=== PATIENT | male | born 1940 | race Caucasian/White ===

== ENCOUNTER 2018-03-18 09:12 | Inpatient (IN) | payer OTHER ==
[~2018-03-18] VITALS: Ht 172.7 cm; Wt 83.3 kg
[~2018-03-18 09:12] MED LIST: FISH OIL 1,0001 EAC7 PO; IRON325 MG PO; LOPRESSOR25 MG PO; MIRALAX17 GM PO
[2018-03-18 09:40] LABS: BASOPHIL (%) 0.2 % (0-1); EOSINOPHIL (%) 0.4 % (0-5); HEMATOCRIT 41.9 % (38.0-50.0); HEMOGLOBIN 13.7 G/DL (12.5-16.6); IMMATURE GRANULOCYTE (%) 0.4 % (0.0-0.7); LYMPHOCYTE (%) 8.7 % (15-42); LYMPHOCYTE COUNT 0.9 K/uL (1.0-2.8); MCH 29.4 PG (29.0-34.0); MCHC 32.7 G/DL (30.0-36.0); MCV 89.9 FL (86-99); MONOCYTE (%) 7.7 % (3-12); MONOCYTE COUNT 0.8 K/uL (0-0.8); NEUTROPHIL (%) 82.6 % (45-76); PLATELET COUNT 177 K/uL (156-360); RBC DIS.WIDTH-CV 13.8 % (11.8-14.6); RBC DIS.WIDTH-SD 45.6 % (39-53); RED BLOOD COUNT 4.66 M/uL (4.00-5.50); WHITE BLOOD COUNT 10.9 K/uL (4.1-10.2)
[2018-03-18 09:49] LABS: ALBUMIN 4.3 g/dL (3.2-4.8); CHLORIDE 102 mEq/L (99-109); POTASSIUM 5.2 mEq/L (3.7-5.4); SODIUM 141 mEq/L (136-147)
[2018-03-18 09:51] LABS: GLUCOSE 112 mg/dL (70-99); TOTAL PROTEIN 8.5 g/dL (6.4-8.3)
[2018-03-18 09:53] LABS: TOTAL BILIRUBIN 0.6 mg/dL (0.0-1.0)
[2018-03-18 09:55] LABS: ALKALINE PHOSPHATASE 104 IU/L (3-129); CREATININE 1.9 mg/dL (0.6-1.3); GFR ESTIMATE (CALCULATED) 37 mL/min/ (58.99-99999)
[2018-03-18 09:56] LABS: UREA NITROGEN (BUN) 24 mg/dL (9-23)
[2018-03-18 09:57] LABS: AST (GOT) 27 IU/L (2-34)
[2018-03-18 09:58] LABS: ALT (GPT) 14 IU/L (3-49)
[2018-03-18 10:01] LABS: TROP-I INTERPRETATION POSITIVE
[2018-03-18 10:03] LABS: TROPONIN-I 0.66 ng/mL (0.0-0.30)
[2018-03-18] MEDS ORDERED: LOPRESSOR50 MG PO (11:14)
[2018-03-18] MEDS ORDERED: NORVASC10 MG PO (11:14)
[2018-03-18 13:37] VITALS: BP 145/74
[2018-03-18 15:13] VITALS: BP 138/74
[2018-03-18 18:34] LABS: TROP-I INTERPRETATION POSITIVE; TROPONIN-I 1.14 ng/mL (0.0-0.30)
[2018-03-18 19:56] VITALS: BP 132/64
[2018-03-19] VITALS (7 sets, daily range): BP systolic 126–159; BP diastolic 68–82
[2018-03-19 01:21] LABS: TROP-I INTERPRETATION POSITIVE
[2018-03-19 02:05] LABS: TROPONIN-I 1.17 ng/mL (0.0-0.30)
[2018-03-19 07:41] LABS: ALBUMIN 3.8 G/DL (3.2-4.8); ALKALINE PHOSPHATASE 80 IU/L (3-129); ALT (GPT) 8 IU/L (3-49); AST (GOT) 17 IU/L (2-34); CHLORIDE 102 MEQ/L (99-109); CREATININE 1.7 MG/DL (0.6-1.3); GFR ESTIMATE (CALCULATED) 42 mL/min/ (58.99-99999); GLUCOSE 129 mg/dL (70-99); MAGNESIUM 2.2 mg/dl (1.3-2.7); POTASSIUM 5.4 MEQ/L (3.7-5.4); SODIUM 139 MEQ/L (136-147); TOTAL BILIRUBIN 0.4 MG/DL (0.0-1.0); TOTAL PROTEIN 6.6 G/DL (6.4-8.3); UREA NITROGEN (BUN) 30 mg/dL (9-23)
[2018-03-19 07:42] LABS: HEMATOCRIT 36.6 % (38.0-50.0); HEMOGLOBIN 11.5 G/DL (12.5-16.6); MCH 28.3 PG (29.0-34.0); MCHC 31.4 G/DL (30.0-36.0); MCV 90.1 FL (86-99); PLATELET COUNT 145 K/uL (156-360); RBC DIS.WIDTH-CV 13.6 % (11.8-14.6); RBC DIS.WIDTH-SD 45.2 % (39-53); RED BLOOD COUNT 4.06 M/uL (4.00-5.50); WHITE BLOOD COUNT 9.6 K/uL (4.1-10.2)
[2018-03-20 03:51] VITALS: BP 157/78
[2018-03-20 07:27] VITALS: BP 153/78
[2018-03-20 11:19] VITALS: BP 137/65
[2018-03-20 15:42] VITALS: BP 130/64
[2018-03-20 19:24] VITALS: BP 131/61
[2018-03-20 22:30] VITALS: BP 119/62
[2018-03-21] VITALS (9 sets, daily range): BP systolic 122–150; BP diastolic 67–91
[2018-03-21 10:25] LABS: PCO2 62 mm Hg (35-45); PO2 172 mm Hg (80-100); pH 7.27 (7.35-7.45)
[2018-03-21 10:26] LABS: BASE EXCESS 0.4 mEq/L (-3 to +3); BICARBONATE 28.5 mEq/L (22-26); CARBOXY HGB 0 % (0-5); COMMENTS - BLOOD GASES A+C+; METHEMOGLOBIN 0.5 % (0-1.5); O2 FLOW 15 L/MIN; SITE RR
[2018-03-21 10:27] LABS: DEVICE NRBR; FI02 100 %; TOTAL RESP RATE 26 resp/min
[2018-03-21 10:45] LABS: HEMATOCRIT 35.8 % (38.0-50.0); HEMOGLOBIN 11.6 G/DL (12.5-16.6); MCHC 32.4 G/DL (30.0-36.0); MCV 89.5 FL (86-99); RBC DIS.WIDTH-CV 14.3 % (11.8-14.6); RBC DIS.WIDTH-SD 46.9 % (39-53); WHITE BLOOD COUNT 17.7 K/uL (4.1-10.2)
[2018-03-21 10:46] LABS: PLATELET COUNT 202 K/uL (156-360)
[2018-03-21 11:08] LABS: CHLORIDE 100 MEQ/L (99-109); CREATININE 1.7 MG/DL (0.6-1.3); GFR ESTIMATE (CALCULATED) 42 mL/min/ (58.99-99999); GLUCOSE 135 mg/dL (70-99); POTASSIUM 4.6 MEQ/L (3.7-5.4); SODIUM 137 MEQ/L (136-147); UREA NITROGEN (BUN) 33 mg/dL (9-23)
[2018-03-21 11:15] LABS: TROP-I INTERPRETATION POSITIVE; TROPONIN-I 1.03 ng/mL (0.0-0.30)
[2018-03-21 12:00] LABS: SITE LR
[2018-03-21 12:01] LABS: COMMENTS - BLOOD GASES A++C; CONTINUOUS POS AIRWAY PRESSURE 5 cm H2O; DEVICE 980; FI02 50 %; MODE NIPPV/SPONT; PRES. SUPPORT 10 CM/H2O; TOTAL RESP RATE 16 resp/min; pH 7.35 (7.35-7.45)
[2018-03-21 12:02] LABS: BICARBONATE 27.1 mEq/L (22-26); CARBOXY HGB 0.3 % (0-5); METHEMOGLOBIN 0.6 % (0-1.5); PCO2 49 mm Hg (35-45); PO2 100 mm Hg (80-100)
[2018-03-21 12:14] LABS: INTER. NORMALIZED RATIO 1.1
[2018-03-21 12:17] LABS: PTT 27.9 SEC (25-37)
[2018-03-21 13:38] LABS: ALBUMIN 3.9 G/DL (3.2-4.8); ALKALINE PHOSPHATASE 65 IU/L (3-129); DIRECT BILIRUBIN 0.1 mg/dL (0.0-0.3); TOTAL BILIRUBIN 0.4 MG/DL (0.0-1.0); TOTAL PROTEIN 6.8 G/DL (6.4-8.3)
[2018-03-21 13:39] LABS: ALT (GPT) 27 IU/L (3-49); AST (GOT) 34 IU/L (2-34)
[2018-03-21 14:13] LABS: HEMOGLOBIN A1c (GLYCOHEMOGLOB) 5.6 % (Below 5.7)
[2018-03-21 14:43] LABS: THYROTROPIN (TSH) 0.65 MIU/L (0.4-5.5)
[2018-03-21 14:46] LABS: HIGH-SENS C-REACTIVE PROTEIN 2.73 MG/DL (0.02-0.20)
[2018-03-21 14:59] LABS: APPEARANCE CLEAR ((CLEAR)); BILIRUBIN NEGATIVE; BLOOD SMALL; COLOR COLORLESS ((YELLOW)); GLUCOSE (STRIP) NEGATIVE; KETONES NEGATIVE; LEUKOCYTES NEGATIVE; NITRITE NEGATIVE; PROTEIN (STRIP) NEGATIVE; SPECIFIC GRAVITY 1.005 (1.000-1.030); UROBILINOGEN 0.2 MG/DL (0.2-1.0)
[2018-03-21 15:05] LABS: BACTERIA NONE SEEN /HPF; EPITHELIAL CELLS NONE SEEN /HPF; MUCUS TRACE /LPF; RED BLOOD CELLS 0-5 /HPF (0-5); UCUL ADDED? YES
[2018-03-21 15:32] LABS: UR CREATININE CONCENTRATION 18.3 MG/DL
[2018-03-21 16:25] LABS: EOSINOPHILS,URINE NONE SEEN
[2018-03-22] VITALS (30 sets, daily range): BP systolic 97–143; BP diastolic 60–83
[2018-03-22 06:09] LABS: BASOPHIL (%) 0 % (0-1); EOSINOPHIL (%) 0 % (0-5); HEMATOCRIT 30.5 % (38.0-50.0); HEMOGLOBIN 9.9 G/DL (12.5-16.6); IMMATURE GRANULOCYTE (%) 0.4 % (0.0-0.7); LYMPHOCYTE (%) 3.6 % (15-42); LYMPHOCYTE COUNT 0.3 K/uL (1.0-2.8); MCH 28.8 PG (29.0-34.0); MCHC 32.5 G/DL (30.0-36.0); MCV 88.7 FL (86-99); MONOCYTE (%) 2.5 % (3-12); MONOCYTE COUNT 0.2 K/uL (0-0.8); NEUTROPHIL (%) 93.5 % (45-76); NEUTROPHIL COUNT 7.2 K/uL (1.8-6.4); PLATELET COUNT 144 K/uL (156-360); RBC DIS.WIDTH-CV 14.1 % (11.8-14.6); RBC DIS.WIDTH-SD 45.8 % (39-53); RED BLOOD COUNT 3.44 M/uL (4.00-5.50); WHITE BLOOD COUNT 7.7 K/uL (4.1-10.2)
[2018-03-22 06:51] LABS: ALBUMIN 3.3 G/DL (3.2-4.8); ALKALINE PHOSPHATASE 45 IU/L (3-129); ALT (GPT) 28 IU/L (3-49); AST (GOT) 44 IU/L (2-34); CHLORIDE 101 MEQ/L (99-109); CREATININE 1.9 MG/DL (0.6-1.3); GFR ESTIMATE (CALCULATED) 37 mL/min/ (58.99-99999); GLUCOSE 133 mg/dL (70-99); POTASSIUM 4.8 MEQ/L (3.7-5.4); SODIUM 138 MEQ/L (136-147); TOTAL BILIRUBIN 0.4 MG/DL (0.0-1.0); TOTAL PROTEIN 5.8 G/DL (6.4-8.3); UREA NITROGEN (BUN) 37 mg/dL (9-23)
[2018-03-22 07:12] LABS: HIGH-SENS C-REACTIVE PROTEIN 3.38 MG/DL (0.02-0.20); MAGNESIUM 2.3 mg/dl (1.3-2.7); PHOSPHORUS 3.7 mg/dL (2.5-4.9)
[2018-03-22 14:23] LABS: COMMENTS - BLOOD GASES C+; DEVICE NC; O2 FLOW 4 L/MIN; SITE RR
[2018-03-22 14:24] LABS: BASE EXCESS 1.7 mEq/L (-3 to +3); BICARBONATE 27.2 mEq/L (22-26); CARBOXY HGB 0.7 % (0-5); METHEMOGLOBIN 0.3 % (0-1.5); O2 SATURATION (CALCULATED) 95.7 % (95-99); PCO2 46 mm Hg (35-45); PO2 71 mm Hg (80-100); TOTAL RESP RATE 20 resp/min; pH 7.38 (7.35-7.45)
[2018-03-23] VITALS (28 sets, daily range): BP systolic 106–157; BP diastolic 63–104
[2018-03-23 05:26] LABS: BASOPHIL (%) 0 % (0-1); EOSINOPHIL (%) 0 % (0-5); HEMATOCRIT 30.9 % (38.0-50.0); IMMATURE GRANULOCYTE (%) 0.6 % (0.0-0.7); LYMPHOCYTE (%) 4.2 % (15-42); LYMPHOCYTE COUNT 0.3 K/uL (1.0-2.8); MCH 28.8 PG (29.0-34.0); MCHC 32.4 G/DL (30.0-36.0); MONOCYTE (%) 4.5 % (3-12); MONOCYTE COUNT 0.3 K/uL (0-0.8); NEUTROPHIL (%) 90.7 % (45-76); NEUTROPHIL COUNT 5.9 K/uL (1.8-6.4); PLATELET COUNT 155 K/uL (156-360); RBC DIS.WIDTH-CV 14.1 % (11.8-14.6); RBC DIS.WIDTH-SD 45.7 % (39-53); RED BLOOD COUNT 3.47 M/uL (4.00-5.50); WHITE BLOOD COUNT 6.5 K/uL (4.1-10.2)
[2018-03-23 06:11] LABS: ALBUMIN 3.2 G/DL (3.2-4.8); ALKALINE PHOSPHATASE 43 IU/L (3-129); ALT (GPT) 31 IU/L (3-49); AST (GOT) 36 IU/L (2-34); CHLORIDE 102 MEQ/L (99-109); CREATININE 1.8 MG/DL (0.6-1.3); GFR ESTIMATE (CALCULATED) 39 mL/min/ (58.99-99999); GLUCOSE 135 mg/dL (70-99); MAGNESIUM 2.5 mg/dl (1.3-2.7); PHOSPHORUS 4.5 mg/dL (2.5-4.9); POTASSIUM 5.1 MEQ/L (3.7-5.4); SODIUM 138 MEQ/L (136-147); TOTAL PROTEIN 5.7 G/DL (6.4-8.3); UREA NITROGEN (BUN) 46 mg/dL (9-23)
[2018-03-23 06:12] LABS: TOTAL BILIRUBIN 0.3 MG/DL (0.0-1.0)
[2018-03-23 17:38] LABS: CREATINE KINASE 125 IU/L (1-294); TOTAL CK 125 IU/L (1-294)
[2018-03-23 17:42] LABS: TROP-I INTERPRETATION POSITIVE
[2018-03-23 17:44] LABS: TROPONIN-I 2.52 ng/mL (0.0-0.30)
[2018-03-23 17:47] LABS: ALBUMIN 3.7 G/DL (3.2-4.8); ALKALINE PHOSPHATASE 48 IU/L (3-129); ALT (GPT) 52 IU/L (3-49); CHLORIDE 99 MEQ/L (99-109); GFR ESTIMATE (CALCULATED) 35 mL/min/ (58.99-99999); GLUCOSE 134 mg/dL (70-99); POTASSIUM 4.7 MEQ/L (3.7-5.4); SODIUM 135 MEQ/L (136-147); UREA NITROGEN (BUN) 58 mg/dL (9-23)
[2018-03-23 17:51] LABS: AST (GOT) 58 IU/L (2-34); TOTAL BILIRUBIN 0.4 MG/DL (0.0-1.0); TOTAL PROTEIN 6.7 G/DL (6.4-8.3)
[2018-03-23 18:11] LABS: INTER. NORMALIZED RATIO 1.1
[2018-03-23 18:14] LABS: PTT 25.4 SEC (25-37)
[2018-03-23 21:20] LABS: CK-MB 8.3 ng/mL (0.0-4.9); CKMB RELATIVE INDEX 6.6 (0.0-3.9)
[2018-03-23 23:56] LABS: TROP-I INTERPRETATION POSITIVE
[2018-03-23 23:59] LABS: TROPONIN-I 7.21 ng/mL (0.0-0.30)
[2018-03-24] VITALS (23 sets, daily range): BP systolic 107–143; BP diastolic 55–80
[2018-03-24 00:02] LABS: CK-MB 29.2 ng/mL (0.0-4.9)
[2018-03-24 01:06] LABS: CKMB RELATIVE INDEX 9.7 (0.0-3.9); TOTAL CK 302 IU/L (1-294)
[2018-03-24 01:12] LABS: CREATINE KINASE 302 IU/L (1-294)
[2018-03-24 05:16] LABS: BASOPHIL (%) 0 % (0-1); EOSINOPHIL (%) 0 % (0-5); HEMATOCRIT 32.3 % (38.0-50.0); HEMOGLOBIN 10.4 G/DL (12.5-16.6); IMMATURE GRANULOCYTE (%) 0.5 % (0.0-0.7); LYMPHOCYTE (%) 2.3 % (15-42); LYMPHOCYTE COUNT 0.3 K/uL (1.0-2.8); MCH 28.6 PG (29.0-34.0); MCHC 32.2 G/DL (30.0-36.0); MCV 88.7 FL (86-99); MONOCYTE (%) 4.6 % (3-12); MONOCYTE COUNT 0.6 K/uL (0-0.8); NEUTROPHIL (%) 92.6 % (45-76); NEUTROPHIL COUNT 12.4 K/uL (1.8-6.4); PLATELET COUNT 191 K/uL (156-360); RBC DIS.WIDTH-CV 14.1 % (11.8-14.6); RBC DIS.WIDTH-SD 45.6 % (39-53); RED BLOOD COUNT 3.64 M/uL (4.00-5.50); WHITE BLOOD COUNT 13.3 K/uL (4.1-10.2)
[2018-03-24 05:43] LABS: ALBUMIN 3.4 G/DL (3.2-4.8); ALKALINE PHOSPHATASE 45 IU/L (3-129); ALT (GPT) 48 IU/L (3-49); AST (GOT) 67 IU/L (2-34); CHLORIDE 102 MEQ/L (99-109); CREATINE KINASE 342 IU/L (1-294); CREATININE 2.1 MG/DL (0.6-1.3); GFR ESTIMATE (CALCULATED) 33 mL/min/ (58.99-99999); GLUCOSE 144 mg/dL (70-99); MAGNESIUM 2.6 mg/dl (1.3-2.7); PHOSPHORUS 4.6 mg/dL (2.5-4.9); POTASSIUM 4.8 MEQ/L (3.7-5.4); SODIUM 137 MEQ/L (136-147); TOTAL BILIRUBIN 0.4 MG/DL (0.0-1.0); TOTAL CK 342 IU/L (1-294); TOTAL PROTEIN 6.2 G/DL (6.4-8.3); UREA NITROGEN (BUN) 67 mg/dL (9-23)
[2018-03-24 05:45] LABS: TROP-I INTERPRETATION POSITIVE; TROPONIN-I 15.43 ng/mL (0.0-0.30)
[2018-03-24 06:00] LABS: CK-MB 42.8 ng/mL (0.0-4.9); CKMB RELATIVE INDEX 12.5 (0.0-3.9)
[2018-03-25] VITALS (9 sets, daily range): BP systolic 110–174; BP diastolic 66–124
[2018-03-25 05:45] LABS: BASOPHIL (%) 0.1 % (0-1); EOSINOPHIL (%) 0 % (0-5); HEMATOCRIT 25.9 % (38.0-50.0); HEMOGLOBIN 8.5 G/DL (12.5-16.6); LYMPHOCYTE (%) 2.1 % (15-42); LYMPHOCYTE COUNT 0.3 K/uL (1.0-2.8); MCH 29.3 PG (29.0-34.0); MCHC 32.8 G/DL (30.0-36.0); MCV 89.3 FL (86-99); MONOCYTE (%) 5.5 % (3-12); MONOCYTE COUNT 0.7 K/uL (0-0.8); NEUTROPHIL (%) 91.3 % (45-76); NEUTROPHIL COUNT 12.4 K/uL (1.8-6.4); PLATELET COUNT 188 K/uL (156-360); RBC DIS.WIDTH-CV 14.2 % (11.8-14.6); RBC DIS.WIDTH-SD 46.1 % (39-53); WHITE BLOOD COUNT 13.5 K/uL (4.1-10.2)
[2018-03-25 06:19] LABS: ALBUMIN 3.1 G/DL (3.2-4.8); ALKALINE PHOSPHATASE 39 IU/L (3-129); ALT (GPT) 41 IU/L (3-49); AST (GOT) 41 IU/L (2-34); CHLORIDE 105 MEQ/L (99-109); CREATININE 2.1 MG/DL (0.6-1.3); GFR ESTIMATE (CALCULATED) 33 mL/min/ (58.99-99999); GLUCOSE 122 mg/dL (70-99); MAGNESIUM 2.7 mg/dl (1.3-2.7); POTASSIUM 4.8 MEQ/L (3.7-5.4); SODIUM 138 MEQ/L (136-147); TOTAL BILIRUBIN 0.4 MG/DL (0.0-1.0); TOTAL PROTEIN 5.3 G/DL (6.4-8.3); UREA NITROGEN (BUN) 75 mg/dL (9-23)
[2018-03-25] MEDS ORDERED: CEFTRIAXONE1 G1 IV (15:07)
[2018-03-25] MEDS ORDERED: ATROPINE SU0.1 MG/ML IV (15:07)
[2018-03-25] MEDS ORDERED: DUONEB 2.5-0.5 M3 ML AEROSOL (15:08)
[2018-03-25] MEDS ORDERED: ALBUTEROL2.5 MG/0.5 AEROSOL (15:54)
[2018-03-25] MEDS ORDERED: NITROSTAT0.4 MG SL (15:55)
[2018-03-25] MEDS ORDERED: IMDUR30 MG PO (15:55)
[2018-03-25] MEDS ORDERED: ATORVASTATIN CA40 MG PO (15:55)
[2018-03-25] MEDS ORDERED: ASPIR-LOW81 MG PO (15:56)
[2018-03-25] MEDS ORDERED: fentaNYL Citrate IV (15:56)
[2018-03-25] MEDS ORDERED: METOPROLOL5 MG/5 M2 IV (15:56)
[2018-03-25] MEDS ORDERED: METOPROLOL SUC100 MG PO (15:56)
[2018-03-25] MEDS ORDERED: SOLU-MEDRO40 MG/1 ML IV (15:57)
[2018-03-25] MEDS ORDERED: Pepcid IV (15:57)
[2018-03-25] MEDS ORDERED: TYLENOL REGULA325 MG PO (15:57)
[2018-03-25] MEDS ORDERED: ONDANSETRON4 MG/2 ML IV (15:57)
[2018-03-25] MEDS ORDERED: NOVOLOG 10100 UNITS/ SC (15:58)
== END 2018-03-25 16:55 | disposition short-term general hospital (02) | DRG 270 ==
LOC: EME 09:12 → 4EAST 11:38 → EDOF 11:38 → 4WEST 11:38 → ENRESERV 11:43 → 4EAST 13:32 → 4WEST 03-21 10:52
PROVIDERS: Emergency Medicine; Family Medicine; Hospitalist; Internal Medicine
DX: I21.4 Non-ST elevation (NSTEMI) myocardial infarction (principal); J18.9 Pneumonia, unspecified organism; J44.0 Chronic obstructive pulmonary disease with (acute) lower respiratory infection; J96.01 Acute respiratory failure with hypoxia; J44.1 Chronic obstructive pulmonary disease with (acute) exacerbation; I25.110 Atherosclerotic heart disease of native coronary artery with unstable angina pectoris; I23.7 Postinfarction angina; I25.5 Ischemic cardiomyopathy; I34.0 Nonrheumatic mitral (valve) insufficiency; I12.9 Hypertensive chronic kidney disease with stage 1 through stage 4 chronic kidney disease, or unspecified chronic kidney disease; N18.3 Chronic kidney disease, stage 3 (moderate); D63.1 Anemia in chronic kidney disease; F05 Delirium due to known physiological condition; T38.0X5A Adverse effect of glucocorticoids and synthetic analogues, initial encounter; I27.20 Pulmonary hypertension, unspecified; J20.9 Acute bronchitis, unspecified; R00.0 Tachycardia, unspecified; E78.5 Hyperlipidemia, unspecified; Z79.82 Long term (current) use of aspirin; Z87.891 Personal history of nicotine dependence; Z85.51 Personal history of malignant neoplasm of bladder; Z90.6 Acquired absence of other parts of urinary tract; Z93.6 Other artificial openings of urinary tract status
CPT/HCPCS: 36600; 71045; 80048; 80053; 80076; 81003; 82436; 82550; 82550 91; 82553; 82570; 82803; 82948; 83036; 83605; 83735; 83880; 84100; 84133; 84145 90; 84300; 84443; 84484; 85025; 85027; 85347; 85379; 85610; 85730; 86141; 87040; 87086; 87449; 87641; 89190; 93005; 93306; 94002; 94003; 94640; 94760; 94799; 99281; 99285; C1725; C1769; C1894; J0295; J0456; J0696; J1644; J1650; J1815; J1940; J2250; J2920; J2930; J3010; J7030; J7050; J7512; J7608; S0028